=== PATIENT | female | born 1990 | race African-American/Black ===

== ENCOUNTER 2021-12-04 16:52 | Emergency (ER) | payer SELFPAY | END 2021-12-04 18:09 | disposition home or self-care (01) | LOC: ERS 16:52 | DX: H60.501 Unspecified acute noninfective otitis externa, right ear (principal); H61.23 Impacted cerumen, bilateral; E03.9 Hypothyroidism, unspecified; Z87.891 Personal history of nicotine dependence | CPT/HCPCS: 99282 ==

== ENCOUNTER 2022-01-29 18:45 | Emergency (ER) | payer SELFPAY | END 2022-01-29 22:20 | disposition home or self-care (01) | LOC: ERS 18:45 | DX: L03.116 Cellulitis of left lower limb (principal); E03.9 Hypothyroidism, unspecified; Z87.891 Personal history of nicotine dependence | CPT/HCPCS: 99283 ==